=== PATIENT | female | born 1955 | race Caucasian/White ===

== ENCOUNTER 2021-12-28 21:11 | Emergency (ER) | payer MEDICARE ==
[2021-12-28 22:02] LABS: Absolute Neutrophil Ct (ANC) 7.27 (1.4-6.9); Basophil (Absolute #) 0.04 (0-0.4); Eosinophil % 5.1 % (0.00-5.0); Eosinophil (Absolute #) 0.57 (0-0.5); Hematocrit 44.9 % (35-47); Hemoglobin 14.5 gm/dl (12.0-16.0); Lymphocyte (Absolute #) 2.38 (1.0-4.6); Lymphocytes % 21.1 % (24.0-44.0); Mean Cell Volume 89.3 fl (78-100); Mean Corpuscular Hemoglobin 28.8 pg (26-32); Mean Corpuscular Hgb Concent. 32.3 g/dl (32-36); Monocyte (Absolute #) 1.02 (0.0-1.3); Neutrophil % 64.4 % (36.0-66.0); Platelet Count 291 K/mm3 (150-450); Red Blood Count 5.03 M/mm3 (4.1-5.4); Red Cell Distribution Width 14.4 % (11.5-14.0); White Blood Count 11.3 K/mm3 (4.0-10.5)
[2021-12-28 22:06] LABS: Epithelial Cells RARE /HPF (FEW); RBC 0-2 /HPF (0-2); WBC 0-2 /HPF (0-5)
[2021-12-28 22:09] LABS: Appearance CLEAR (CLEAR); Bilirubin NEGATIVE (NEGATIVE); Glucose 500 mg/dL (NEGATIVE); Ketones NEGATIVE (NEGATIVE)
[2021-12-28 22:10] LABS: Dipstick done @ ? MAIN LAB; Nitrite NEGATIVE (NEGATIVE); Ph 6.5 (5-6); Protein,Urine Dip >=300 (Negative); RBC SMALL Ery/ul (0-5); Urine Cultured Indicated? YES; Urobilinogen 0.2 mg/dL (0-1)
[2021-12-28 22:11] LABS: INR 0.96 (0.8-3.0); PROTIME 11.3 SECONDS (9.4-12.5)
[2021-12-28 22:14] LABS: PTT 29.6 SECONDS (25.1-36.5)
[2021-12-28 22:17] LABS: ALBUMIN 3.3 g/dL (3.5-5.0); ANION GAP 11.8 MEQ/L (5-15); BILIRUBIN,TOTAL 0.5 mg/dL (0.2-1.3); Calcium 8.7 mg/dL (8.4-10.2); Creatinine 1 1.4 mg/dL (0.52-1.04); EST GLOMERULAR FILTRATION RATE 40.1 ML/MIN; Potassium 3.4 mmol/L (3.5-5.1); Total Protein 6.6 g/dL (6.3-8.2)
--- NOTE | 2021-12-28 22:24 | ERPHSYRPT ---
- History of Present Illness Source: patient Exam Limitations: other (Poor historian) Patient Subjective Stated Complaint: Patient states she fell on Sunday from her chair/recliner and hit a bucket that was next to the chair. Indicates that she hit the bucket with her right lower abdomen and that the pain to this area has not improved and she thinks she should have it checked. She is unsure how or why she fell. Patient indicates that she has become weaker over the past few weeks and her has had to help her more with her mobility than normal. Patient reports a stroke approx 8 years ago that affected her left side but feels that her left side may be weaker over the past few weeks than her normal. Triage Nursing Assessment: Patient brought back to ED in a wheelchair. She required one staff member to assist with a transfer from the wheelchair to the bed and two staff members to assist her from the wheelchair to the toilet. BLE with noted weakness during transfers but patient was able to bear weight and pivot slowly. LLE may be slightly weaker than the RLE. Mild droop noted to left corner of her mouth. She is alert and oriented and answering questions appropriately; very talkative. Patient is not the best historian but her is at the bedside assisting with her history. Right lower abdomen is bruised with no other skin alterations noted. Physician History: 66 yo wf w fall at her home 3 days ago hitting her R abdomen on a bucket. Pt has a chronic L hemiparesis due to old CVA but has been having generalized weakness over the last 2-3 weeks. Pt did not hit her head but is worried about progressive generalized weakness. She has mild C-spine pain but denies T/L-spine pain. Pt has a large ecchymotic area R abdomen. Thorax/back/upper-lower extremities NTTP. Occurred: days ago (3 days ago) Reason for Fall: lost balance Injuries/Pain Location: neck, abdomen Loss of Consciousness: no loss of consciousness Severity of Pain-Max: severe Severity of Pain-Current: severe Modifying Factors: Improves With: movement Associated Symptoms (Fall): abdominal pain, neck pain Allergies/Adverse Reactions: No Known Drug Allergies Allergy (Verified 12/28/21 21:29) Home Medications: Cholecalciferol (Vitamin D3) [Vitamin D3] 1 tab PO DAILY 12/28/21 [History] Docusate Sodium [Colace] 1 cap PO TID PRN 12/28/21 [History] Gabapentin [Neurontin] 1 tab PO TID 12/28/21 [History] Insulin Glargine [Lantus Insulin] 50 units SQ HS 12/28/21 [History] Insulin Lispro [Insulin Lispro Kwikpen U-100] 20 units SQ BID 12/28/21 [History] Lisinopril/Hydrochlorothiazide [Zestoretic 20-12.5 mg Tablet] 1 tab PO DAILY 12/28/21 [History] Omeprazole 1 cap PO DAILY PRN 12/28/21 [History] Polyethylene Glycol 3350 [Miralax] 17 gm PO DAILY PRN 12/28/21 [History] Vitamin B Complex 1 tab PO DAILY 12/28/21 [History] Hx Tetanus, Diphtheria Vaccination/Date Given: Yes Hx Influenza Vaccination/Date Given: No Hx Pneumococcal Vaccination/Date Given: Yes Immunizations Up to Date: Yes Travel Risk - International Travel Have you traveled outside of the country in past 3 weeks: No - Coronavirus Screening Are you exhibiting any of the following symptoms?: No Close contact with a COVID-19 positive Pt in past 14-21 Days: No - Vaccine Status Have you recieved a Covid-19 vaccination: No - Review of Systems Constitutional: No Symptoms, Lethargy Eyes: No Symptoms Ears, Nose, & Throat: No Symptoms Respiratory: No Symptoms Cardiac: No Symptoms Abdominal/Gastrointestinal: No Symptoms, Abdominal Pain Genitourinary Symptoms: No Symptoms Musculoskeletal: No Symptoms Skin: No Symptoms Neurological: No Symptoms Psychological: No Symptoms Endocrine: No Symptoms Hematologic/Lymphatic: No Symptoms Immunological/Allergic: No Symptoms - Past Medical History Pertinent Past Medical History: Yes Neurological History: Stroke ENT History: Cataracts Cardiac History: High Cholesterol, Hypertension Respiratory History: No Pertinent History Endocrine Medical History: Diabetes Type II, Hypothyroidism Musculoskeletal History: Arthritis, Fractures GI Medical History: GERD, Gallbladder Disease History: No Pertinent History Psycho-Social History: No Pertinent History Female Reproductive Disorders: No Pertinent History - Past Surgical History Past Surgical History: Yes Neuro Surgical History: No Pertinent History Cardiac: No Pertinent History Respiratory: No Pertinent History Gastrointestinal: No Pertinent History Genitourinary: No Pertinent History Musculoskeletal: Orthopedic Surgery Female Surgical History: Hysterectomy, Section Other Surgical History: Knee, wrist - Social History Smoking Status: Current every day smoker How long have you smoked: 20 years Exposure to second hand smoke: No Drug Use: none Patient Lives Alone: No Significant Family History: no pertinent family hx - Nursing Vital Signs Nursing Vital Signs: Initial Vital Signs Temperature 98 F 12/28/21 21:30 Pulse Rate 97 H 12/28/21 21:30 Respiratory Rate 18 12/28/21 21:30 Blood Pressure 173/91 12/28/21 21:30 O2 Sat by Pulse Oximetry 96 12/28/21 21:30 Pain Scale Pain Intensity 0 Hypertensive - Neema Coma Score Best Eye Response (Neema): (4) open spontaneously Best Verbal Response (Neema): (5) oriented Best Motor Response (Neema): (6) obeys commands [place] Total: 15 - Physical Exam General Appearance: no apparent distress Head Injury: no evidence of injury Eye Exam: PERRL/EOMI, eyes nml inspection ENT Exam: airway nml, No evidence of ENT injury, No dental injury, No clear fluid (ears), No clear fluid (nose) Neck Exam: supple, trachea midline, tenderness (C-spine mildly TTP), No focal neuro deficit Respiratory/Chest Exam: normal breath sounds, No chest tenderness, No respiratory distress Cardiovascular Exam: normal heart sounds, regular rate/rhythm, No murmur Gastrointestinal Exam: soft, tenderness (R sided abdominal TTP w large ecchymotic area) Back Exam: normal inspection, normal range of motion, No CVA tenderness, No vertebral tenderness Extremity Exam: normal inspection, normal range of motion, capillary refill <3 sec, pelvis stable, No deformities, No lacerations Peripheral Pulses: carotid (R): 2+, carotid (L): 2+ Neurologic Exam: alert, oriented x 3, cooperative, 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 nml as tested, motor deficits (Pt states that she has chronic L hemiparesis but strength appears symmetric) Skin Exam: normal color SpO2 Interpretation: normal SpO2: 94 O2 Delivery: Room Air - Course Nursing assessment & vital signs reviewed: Yes EKG Interpreted by Me: RATE (NSR/R92/Mildly prolonged QTc/IVCD/Poor Rwave progression/No acute ST segment changes) - CT Exams Head CT Interpretation: Tele-radiologist Report (CT head Nothing acute/L frontal cortex encephalomalacia) Cervical Spine CT Interpretation: Tele-radiologist Report (DDD) Abdomen/Pelvis CT Interpretation: Tele-radiologist Report (Gallbladder sludge, nothing acute) Ordered Tests: Active Orders 24 hr Category Date Time Status AMA [Release AMA] OM.NOW Care 12/29/21 00:51 Completed EKG-ER Only STAT Care 12/28/21 21:53 Completed ABDOMEN AND PELVIS W/0 CONTRAS [CT] Stat Exams 12/28/21 22:06 Taken CERVICAL SPINE WO CONTRAST [CT] Stat Exams 12/28/21 21:52 Taken HEAD WITHOUT CONTRAST [CT] Stat Exams 12/28/21 21:52 Taken CBC W DIFF Stat Lab 12/28/21 21:52 Completed CMP Stat Lab 12/28/21 21:50 Completed PROTIME WITH INR Stat Lab 12/28/21 21:50 Completed PTT Stat Lab 12/28/21 21:50 Completed TROPONIN Q3H Lab 12/28/21 21:50 Completed TROPONIN Q3H Lab 12/29/21 00:15 Completed TROPONIN Q3H Lab 12/29/21 04:00 Ordered TROPONIN Q3H Lab 12/29/21 07:00 Ordered TROPONIN Q3H Lab 12/29/21 10:00 Ordered Medication Summary Discontinued Medications Generic Name Dose Route Start Last Admin Trade Name Freq PRN Reason Stop Dose Admin Fentanyl Citrate 25 mcg 12/28/21 23:27 12/28/21 23:38 Fentanyl Citrate 100 Mcg/2 Ml* Vial IV 12/28/21 23:28 25 mcg STAT ONE Administration Fentanyl Citrate Confirm 12/28/21 23:32 Fentanyl Citrate 100 Mcg/2 Ml* Vial Administered 12/28/21 23:33 Dose 100 mcg .ROUTE .STK-MED ONE Ondansetron HCl 4 mg 12/28/21 23:27 12/28/21 23:37 Ondansetron Hcl 4 Mg/2 Ml Vial IV 12/28/21 23:28 4 mg STAT ONE Administration Ondansetron HCl Confirm 12/28/21 23:31 Ondansetron Hcl 4 Mg/2 Ml Vial Administered 12/28/21 23:32 Dose 4 mg .ROUTE .STK-MED ONE Lab/Rad Data: Laboratory Result Diagrams 12/28/21 21:52 12/28/21 21:50 Laboratory Results 12/29/21 12/28/21 12/28/21 Range/Units 00:15 Unknown 22:30 WBC (4.0-10.5) K/mm3 RBC (4.1-5.4) M/mm3 Hgb (12.0-16.0) gm/dl Hct (35-47) % MCV (78-100) fl MCH (26-32) pg MCHC (32-36) g/dl RDW (11.5-14.0) % Plt Count (150-450) K/mm3 MPV (7.5-11.0) fl Gran % (36.0-66.0) % Eos # (Auto) (0-0.5) Absolute Lymphs (auto) (1.0-4.6) Absolute Monos (auto) (0.0-1.3) Lymphocytes % (24.0-44.0) % Monocytes % (0.0-12.0) % Eosinophils % (0.00-5.0) % Basophils % (0.0-0.4) % Absolute Granulocytes (1.4-6.9) Basophils # (0-0.4) PT (9.4-12.5) SECONDS INR (0.8-3.0) APTT (25.1-36.5) SECONDS Sodium (137-145) mmol/L Potassium (3.5-5.1) mmol/L Chloride (98-107) mmol/L Carbon Dioxide (22-30) mmol/L Anion Gap (5-15) MEQ/L BUN (7-17) mg/dL Creatinine (0.52-1.04) mg/dL Estimated GFR ML/MIN Glucose (74-106) mg/dL Calcium (8.4-10.2) mg/dL Total Bilirubin (0.2-1.3) mg/dL AST (14-36) U/L ALT (0-35) U/L Alkaline Phosphatase (38-126) U/L Troponin I 0.062 H* (0.000-0.034) ng/mL Serum Total Protein (6.3-8.2) g/dL Albumin (3.5-5.0) g/dL Urinalys Dipstick Clnc MAIN LAB Urine Color YELLOW (YELLOW) Urine Appearance CLEAR (CLEAR) Urine pH 6.5 (5-6) Ur Specific [place] 1.020 (1.005-1.025) POC Urine Protein Conf >=300 (Negative) Urine Ketones NEGATIVE (NEGATIVE) Urine Nitrite NEGATIVE (NEGATIVE) Urine Bilirubin NEGATIVE (NEGATIVE) Urine Urobilinogen 0.2 (0-1) mg/dL Urine Leukocytes NEGATIVE (NEGATIVE) Urine WBC (Auto) 0-2 (0-5) /HPF Urine RBC (Auto) 0-2 (0-2) /HPF U Epithel Cells (Auto) RARE (FEW) /HPF Urine RBC SMALL (0-5) [place]/ul Ur Culture Indicated? YES Urine Glucose 500 (NEGATIVE) mg/dL Influenza Type A Ag NEGATIVE (NEGATIVE) Influenza Type B Ag NEGATIVE (NEGATIVE) RSV (PCR) NEGATIVE (Negative) SARS-CoV-2 (PCR) NEGATIVE (NEGATIVE) 12/28/21 12/28/21 12/28/21 Range/Units 21:52 21:50 21:50 WBC 11.3 H (4.0-10.5) K/mm3 RBC 5.03 (4.1-5.4) M/mm3 Hgb 14.5 (12.0-16.0) gm/dl Hct 44.9 (35-47) % MCV 89.3 (78-100) fl MCH 28.8 (26-32) pg MCHC 32.3 (32-36) g/dl RDW 14.4 H (11.5-14.0) % Plt Count 291 (150-450) K/mm3 MPV 10.0 (7.5-11.0) fl Gran % 64.4 (36.0-66.0) % Eos # (Auto) 0.57 H (0-0.5) Absolute Lymphs (auto) 2.38 (1.0-4.6) Absolute Monos (auto) 1.02 (0.0-1.3) Lymphocytes % 21.1 L (24.0-44.0) % Monocytes % 9.0 (0.0-12.0) % Eosinophils % 5.1 H (0.00-5.0) % Basophils % 0.4 (0.0-0.4) % Absolute Granulocytes 7.27 H (1.4-6.9) Basophils # 0.04 (0-0.4) PT 11.3 (9.4-12.5) SECONDS INR 0.96 (0.8-3.0) APTT 29.6 (25.1-36.5) SECONDS Sodium (137-145) mmol/L Potassium (3.5-5.1) mmol/L Chloride (98-107) mmol/L Carbon Dioxide (22-30) mmol/L Anion Gap (5-15) MEQ/L BUN (7-17) mg/dL Creatinine (0.52-1.04) mg/dL Estimated GFR ML/MIN Glucose (74-106) mg/dL Calcium (8.4-10.2) mg/dL Total Bilirubin (0.2-1.3) mg/dL AST (14-36) U/L ALT (0-35) U/L Alkaline Phosphatase (38-126) U/L Troponin I 0.070 H* (0.000-0.034) ng/mL Serum Total Protein (6.3-8.2) g/dL Albumin (3.5-5.0) g/dL Urinalys Dipstick Clnc Urine Color (YELLOW) Urine Appearance (CLEAR) Urine pH (5-6) Ur Specific [place] (1.005-1.025) POC Urine Protein Conf (Negative) Urine Ketones (NEGATIVE) Urine Nitrite (NEGATIVE) Urine Bilirubin (NEGATIVE) Urine Urobilinogen (0-1) mg/dL Urine Leukocytes (NEGATIVE) Urine WBC (Auto) (0-5) /HPF Urine RBC (Auto) (0-2) /HPF U Epithel Cells (Auto) (FEW) /HPF Urine RBC (0-5) [place]/ul Ur Culture Indicated? Urine Glucose (NEGATIVE) mg/dL Influenza Type A Ag (NEGATIVE) Influenza Type B Ag (NEGATIVE) RSV (PCR) (Negative) SARS-CoV-2 (PCR) (NEGATIVE) 12/28/21 Range/Units 21:50 WBC (4.0-10.5) K/mm3 RBC (4.1-5.4) M/mm3 Hgb (12.0-16.0) gm/dl Hct (35-47) % MCV (78-100) fl MCH (26-32) pg MCHC (32-36) g/dl RDW (11.5-14.0) % Plt Count (150-450) K/mm3 MPV (7.5-11.0) fl Gran % (36.0-66.0) % Eos # (Auto) (0-0.5) Absolute Lymphs (auto) (1.0-4.6) Absolute Monos (auto) (0.0-1.3) Lymphocytes % (24.0-44.0) % Monocytes % (0.0-12.0) % Eosinophils % (0.00-5.0) % Basophils % (0.0-0.4) % Absolute Granulocytes (1.4-6.9) Basophils # (0-0.4) PT (9.4-12.5) SECONDS INR (0.8-3.0) APTT (25.1-36.5) SECONDS Sodium 134 L (137-145) mmol/L Potassium 3.4 L (3.5-5.1) mmol/L Chloride 96 L (98-107) mmol/L Carbon Dioxide 29 (22-30) mmol/L Anion Gap 11.8 (5-15) MEQ/L BUN 20 H (7-17) mg/dL Creatinine 1.40 H (0.52-1.04) mg/dL Estimated GFR 40.1 ML/MIN Glucose 281 H (74-106) mg/dL Calcium 8.7 (8.4-10.2) mg/dL Total Bilirubin 0.50 (0.2-1.3) mg/dL AST 22 (14-36) U/L ALT 10 (0-35) U/L Alkaline Phosphatase 117 (38-126) U/L Troponin I (0.000-0.034) ng/mL Serum Total Protein 6.6 (6.3-8.2) g/dL Albumin 3.3 L (3.5-5.0) g/dL Urinalys Dipstick Clnc Urine Color (YELLOW) Urine Appearance (CLEAR) Urine pH (5-6) Ur Specific [place] (1.005-1.025) POC Urine Protein Conf (Negative) Urine Ketones (NEGATIVE) Urine Nitrite (NEGATIVE) Urine Bilirubin (NEGATIVE) Urine Urobilinogen (0-1) mg/dL Urine Leukocytes (NEGATIVE) Urine WBC (Auto) (0-5) /HPF Urine RBC (Auto) (0-2) /HPF U Epithel Cells (Auto) (FEW) /HPF Urine RBC (0-5) [place]/ul Ur Culture Indicated? Urine Glucose (NEGATIVE) mg/dL Influenza Type A Ag (NEGATIVE) Influenza Type B Ag (NEGATIVE) RSV (PCR) (Negative) SARS-CoV-2 (PCR) (NEGATIVE) - Progress Progress Note: 12/29/21 00:46 Fentanyl 25umg IV/4mg IV Zofran Pt w mildly elevated troponin and risk factors of DM/HTN/Tobacco abuse, so recommended Obs admit. Pt refused and signed out AMA. Risks explained to pt, including OR/ Counseled pt/family regarding: lab results, diagnosis, need for follow-up, rad results - Departure Departure Disposition: AMA Clinical Impression: Abdominal wall contusion, Elevated troponin, Renal insufficiency, Hypertension Condition: Stable Critical Care Time: No Referrals: Provider,Unknown [Primary Care Provider] - Follow up/PCP as directed Instructions: Preventing Falls
[2021-12-28 23:18] LABS: INFLUENZA A NEGATIVE (NEGATIVE); INFLUENZA B NEGATIVE (NEGATIVE); RESPIRATORY SYNCTIAL VIRUS NEGATIVE (Negative); SARS-CoV-2 Xpert Express NEGATIVE (NEGATIVE)
[2021-12-28] MEDS ORDERED: SUBLIMAZE 100 MCG/2 ML IV ONE (23:27)
[2021-12-28] MEDS ORDERED: Zofran 4 MG/2 ML VIAL IV ONE (23:27)
[2021-12-28] MEDS ORDERED: Zofran 4 MG/2 ML VIAL ONE (23:31)
[2021-12-28] MEDS ORDERED: SUBLIMAZE 100 MCG/2 ML ONE (23:32)
[2021-12-28 23:39] VITALS: O2SAT 94
[2021-12-29 00:46] VITALS: BP 143/106; PULSE 84
--- NOTE | 2021-12-29 08:45 | XRAY ---
Indication: Status post fall. Left facial numbness and right neck pain. Multiple contiguous axial images obtained through the head without contrast. Comparison: None Age-appropriate global atrophy and mild/moderate periventricular degenerative micro-ischemia bilaterally. Small focus old infarct left parietal lobe anteriorly. No acute intracranial hemorrhage, hydrocephalus, or mass effect. Fourth ventricle is midline. Bony calvarium intact. Visualized paranasal sinuses and mastoid air cells are clear. Impression: Nonacute senile brain with small old left parietal infarct. Comment: Preliminary interpretation made by C. No critical discrepancy.
--- NOTE | 2021-12-29 08:47 | XRAY ---
Indication: Status post fall. Left facial numbness and right neck pain. Multiple contiguous axial images obtained through the cervical spine. Sagittal and coronal reformatted images obtained. Comparison: None Axial images negative for acute fracture, suspicious bony lesions, or spinal canal stenosis. Mild C3-C7 degenerative endplate spurring. Sagittal and coronal reformatted images demonstrates normal alignment. Minimal C4-C5 disc space narrowing. No acute compression fracture, subluxation, or jumped facet. Normal appearing craniocervical junction. Visualized noncontrasted soft tissues demonstrates moderate scattered vascular calcifications bilaterally. Lung apices clear. Impression: 1. Negative for acute fracture/subluxation. 2. Multilevel degenerative changes and scattered arteriosclerotic disease. Comment: Preliminary interpretation made by [facility]. No critical discrepancy.
--- NOTE | 2021-12-29 08:49 | XRAY ---
Indication: Status post fall. Right abdomen pain. Multiple contiguous axial images obtained through the abdomen and pelvis without contrast. Comparison: None Lung bases demonstrates minimal fibrosis/scarring. No infiltrate, effusion, or pneumothorax. Heart enlarged. Noncontrasted stomach and bowel loops nonobstructed with normal appendix. Mild diffuse scattered colonic fecal debris throughout. Previous hysterectomy. No free fluid/air. Gallbladder normally distended with faint sludge/gravel in the dependent portion. 9 mm right lobe hepatic cyst. Remaining liver, gallbladder, pancreas, spleen, adrenal glands, kidneys, ureters, and bladder are unremarkable for noncontrast exam. Moderate/severe and diffuse scattered vascular calcifications without AAA. Osseous structures intact with mild degenerative changes throughout the thoracolumbar spine. Impression: 1. Gallbladder sludge/gravel better evaluated with sonogram if clinically warranted. 2. Diffuse fecal stasis. 3. Incidental cardiomegaly, small hepatic cyst, arteriosclerotic disease, and chronic bony findings. 4. Remaining CT abdomen/pelvis without contrast exam is negative. Comment: Preliminary interpretation made by [facility]. No critical discrepancy.
== END 2021-12-29 01:00 | disposition left against medical advice (07) ==
LOC: ED 21:11
DX: S30.1XXA Contusion of abdominal wall, initial encounter (principal); W07.XXXA Fall from chair, initial encounter; R77.8 Other specified abnormalities of plasma proteins; N28.9 Disorder of kidney and ureter, unspecified; I10 Essential (primary) hypertension; R53.1 Weakness; I69.354 Hemiplegia and hemiparesis following cerebral infarction affecting left non-dominant side; M54.2 Cervicalgia; E78.5 Hyperlipidemia, unspecified; E11.9 Type 2 diabetes mellitus without complications; Z72.0 Tobacco use; Z79.4 Long term (current) use of insulin; Z79.899 Other long term (current) drug therapy
CPT/HCPCS: 0241U; 36415; 70450; 72125; 74176; 80053; 81015; 84484; 85025; 85610; 85730; 87086; 93005; 96374; 99284; J2405; J3010

== ENCOUNTER 2022-04-15 19:55 | Emergency (ER) | payer MEDICARE ==
[2022-04-15] MEDS ORDERED: D50W 50 ml Abboject IV ONE (19:59)
[2022-04-15] MEDS ORDERED: DEXTROSE 10% 250 ML 250 ML IV ONE ×2 (20:01→23:21)
[2022-04-15] MEDS ORDERED: Sodium Chloride 0.9% 1000 ML 1,000 ML IV STA (20:06)
[2022-04-15] MEDS ORDERED: Zofran 4 MG/2 ML VIAL IV ONE (20:06)
[2022-04-15 20:25] LABS: Absolute Neutrophil Ct (ANC) 6.59 x10^3/uL (1.4-6.9); Basophil (Absolute #) 0.03 x10^3/uL (0-0.4); Eosinophil % 2.4 % (0.00-5.0); Eosinophil (Absolute #) 0.22 x10^3/uL (0-0.5); Hematocrit 35.9 % (35-47); Hemoglobin 11.4 g/dL (12.0-16.0); Lymphocyte (Absolute #) 1.43 x10^3/uL (1.0-4.6); Lymphocytes % 15.5 % (24.0-44.0); Mean Cell Volume 89.5 fL (78-100); Mean Corpuscular Hemoglobin 28.4 pg (26-32); Mean Corpuscular Hgb Concent. 31.8 g/dL (32-36); Mean Platelet Volume 9.1 fL (7.5-11.0); Monocyte (Absolute #) 0.92 x10^3/uL (0.0-1.3); Neutrophil % 71.4 % (36.0-66.0); Platelet Count 396 x10^3/uL (150-450); Red Blood Count 4.01 x10^6/uL (4.1-5.4); Red Cell Distribution Width 13.3 % (11.5-14.0); White Blood Count 9.2 x10^3/uL (4.0-10.5)
[2022-04-15 20:42] LABS: ALBUMIN 2.3 g/dL (3.5-5.0); ANION GAP 8.9 MEQ/L (5-15); BILIRUBIN,TOTAL 0.2 mg/dL (0.2-1.3); Calcium 8.2 mg/dL (8.4-10.2); Creatinine 1 1.29 mg/dL (0.52-1.04); EST GLOMERULAR FILTRATION RATE 43.9 ML/MIN; MAGNESIUM 1.9 mg/dL (1.6-2.3); Total Protein 4.8 g/dL (6.3-8.2)
[2022-04-15 20:49] LABS: Potassium 2.8 mmol/L (3.5-5.1)
[2022-04-15 20:53] LABS: PROCALCITONIN 0.079 ng/mL (0.030-0.080)
[2022-04-15 20:55] LABS: Epithelial Cells RARE /HPF (FEW); Mucus SLIGHT /HPF (NEGATIVE); RBC 0-2 /HPF (0-2)
[2022-04-15 20:56] LABS: Appearance SLIGHTLY CLOUDY (CLEAR); Bilirubin SMALL (NEGATIVE); Dipstick done @ ? MAIN LAB; Glucose 250 mg/dL (NEGATIVE); Ketones NEGATIVE (NEGATIVE); Nitrite NEGATIVE (NEGATIVE); Ph 5.5 (5-6); Protein,Urine Dip >=300 (Negative); RBC TRACE-INTACT Ery/ul (0-5); Specific Gravity >=1.030 (1.005-1.025); Urobilinogen 0.2 mg/dL (0-1)
[2022-04-15 20:57] LABS: Bacteria NONE SEEN /HPF (NEGATIVE); Urine Cultured Indicated? NO
[2022-04-15] MEDS ORDERED: Zofran 4 MG/2 ML VIAL ONE (21:01)
[2022-04-15] MEDS ORDERED: Sodium Chloride 0.9% 1000 ML 1,000 ML ONE (21:01)
[2022-04-15] MEDS ORDERED: PIPERACILLIN/TAZOBACTAM 3.375 GM in Sodium Chloride 100ML MINI-BAG PLUS 100 ML IV ONE (21:03)
[2022-04-15] MEDS ORDERED: Levofloxacin 500MG/100ML D5W 500 MG/100 ML BAG IV STA (21:03)
[2022-04-15 21:07] LABS: Amphetamine,Urine NEGATIVE (NEGATIVE); Barbiturate,Urine NEGATIVE (NEGATIVE); Benzodiazepine,Urine NEGATIVE (NEGATIVE); Cocaine,Urine NEGATIVE (NEGATIVE); Methadone,Urine NEGATIVE (NEGATIVE); Opiate,Urine NEGATIVE (NEGATIVE); PCP,Urine NEGATIVE (NEGATIVE); THC,Urine NEGATIVE (NEGATIVE)
[2022-04-15 21:08] LABS: TROPONIN 0.061 ng/mL (0.000-0.034)
[2022-04-15] MEDS ORDERED: PIPERACILLIN/TAZOBACTAM IV ONE (21:13)
[2022-04-15] MEDS ORDERED: POTASSIUM CHLORIDE 20 mEq IN WATER 100ML 100 ML IV ONE ×2 (21:14→23:26)
[2022-04-15] MEDS ORDERED: Sodium Chloride 100ML MINI-BAG PLUS 100 ML IV ONE (21:14)
[2022-04-15] MEDS: POTASSIUM CHLORIDE 20 mEq IN WATER 100ML 20 MEQ/100 ML BAG IV SCH ×2 (21:15→23:27)
--- NOTE | 2022-04-15 21:55 | XRAY ---
Indication: Altered mental status. Hypoglycemia. Comparison: None Portable chest inflated and clear. Heart is enlarged. Bony thorax intact with mild osteopenia and degenerative changes. Impression: Cardiomegaly. Negative for acute pneumonic process or CHF.
--- NOTE | 2022-04-15 21:57 | XRAY ---
Indication: Altered mental status. Hypoglycemia. Multiple contiguous axial images obtained through the head without contrast. Comparison: December 28, 2021 Again age-appropriate global atrophy, mild/moderate periventricular degenerative micro-ischemia bilaterally, remote lacunar infarct left basal ganglia, and small old infarct left parietal lobe. No acute intracranial hemorrhage, hydrocephalus, or mass effect. Fourth ventricle is midline. Bony calvarium intact. Visualized paranasal sinuses and mastoid air cells are clear. Impression: Continued nonacute senile brain with incidental remote lacunar infarct left basal ganglia and old infarct left parietal lobe. Comment: Preliminary interpretation made by C. No critical discrepancy.
[2022-04-15] MEDS ORDERED: Levofloxacin 500MG/100ML D5W 500 MG/100 ML BAG IV ONE (22:02)
--- NOTE | 2022-04-15 22:03 | ERPHSYRPT ---
- History of Present Illness Source: EMS Exam Limitations: clinical condition Patient Subjective Stated Complaint: EMS states "We got called for unresponsiveness. Initially fsbs 23 and gave her 3/4 d50." Triage Nursing Assessment: pt presents to ED by ems, pt able to tell me first name only, pt responsive to name and painful stimuli, pt's fsbs upon arrival 58, full amp of d50 and d10 running at 75 ml/hr, pt was released from a hospital per on Hx Tetanus, Diphtheria Vaccination/Date Given: Yes Hx Influenza Vaccination/Date Given: No Hx Pneumococcal Vaccination/Date Given: Yes - History of Present Illness Time Seen by Provider: 04/15/22 20:05 Physician History: 67 years old female with history of insulin-dependent diabetes mellitus, hypertension, hyperlipidemia with recent COVID-19 related admission got nick mckoy 1 or 2 days ago is brought in the ER by EMS with altered mental status. On EMS arrival patient was minimally responsive, diaphoretic and her blood sugar was 23. She received D50 and it improved to 150s. On presentation in the ER fingerstick is 58, given another D50 and started on D10 infusion. Patient is responding to verbal stimuli and falls back asleep. She denies having chest pain/abdominal pain. Moving all 4 extremities to painful stimuli. Patient is able to maintain her vitals with heart rate in upper 50s, sats around 95%. Patient is unable to tell how much insulin she has taken. History is limited and obtained from EMS as no family members available. (FOREIGN MICHAUD) Allergies/Adverse Reactions: No Known Drug Allergies Allergy (Verified 12/28/21 21:29) Home Medications: Docusate Sodium [Colace] 1 cap PO TID PRN PRN 12/28/21 [History] Gabapentin [Neurontin] 600 mg PO TID 12/28/21 [History] Insulin Lispro [Insulin Lispro Kwikpen U-100] 20 units SQ UD 12/28/21 [History] Lisinopril/Hydrochlorothiazide [Zestoretic 20-12.5 mg Tablet] 1 tab PO DAILY 12/28/21 [History] Bisacodyl 5 mg [Dulcolax 5 mg] 5 mg PO DAILY 04/15/22 [History] Carvedilol [Coreg ] 6.25 mg PO BID 04/15/22 [History] Carvedilol 3.125 mg [Coreg 3.125 MG] 3.125 mg PO BID 04/15/22 [History] Cholecalciferol (Vitamin D3) [Vitamin D3] 1,250 mcg PO UD 04/15/22 [History] Insulin Glargine,Hum.rec.anlog [Basaglar Kwikpen U-100] 1 unit SQ UD 04/15/22 [History] Linaclotide [Linzess] 145 mcg PO DAILY 04/15/22 [History] Simvastatin 10 mg [Zocor 10MG] 10 mg PO DAILY 04/15/22 [History] Travel Risk - International Travel Have you traveled outside of the country in past 3 weeks: No - Coronavirus Screening Are you exhibiting any of the following symptoms?: No Close contact with a COVID-19 positive Pt in past 14-21 Days: No - Vaccine Status Have you recieved a Covid-19 vaccination: No - Review of Systems All Other Systems: Unable due to condition - Past Medical History Pertinent Past Medical History: Yes Neurological History: Peripheral Neuropathy, Stroke ENT History: Cataracts Cardiac History: Angina, High Cholesterol, Hypertension Respiratory History: No Pertinent History Endocrine Medical History: Diabetes Type II, Hypothyroidism, Liver Disease, Other Musculoskeletal History: Arthritis, Fractures GI Medical History: GERD, Gallbladder Disease History: No Pertinent History Psycho-Social History: No Pertinent History Female Reproductive Disorders: No Pertinent History Other Medical History: ongoing gall bladder testing - Past Surgical History Past Surgical History: Yes Neuro Surgical History: No Pertinent History Cardiac: No Pertinent History Respiratory: No Pertinent History Gastrointestinal: No Pertinent History Genitourinary: No Pertinent History Musculoskeletal: Orthopedic Surgery Female Surgical History: Hysterectomy, Section Other Surgical History: Knee, wrist - Social History Smoking Status: Current every day smoker How long have you smoked: 20 years Exposure to second hand smoke: No Drug Use: none Patient Lives Alone: No Significant Family History: no pertinent family hx - Physical Exam General Appearance: no apparent distress, lethargy Eye Exam: PERRL/EOMI, eyes nml inspection, No scleral icterus Ears, Nose, Throat Exam: TMs normal, dry mucous membranes Neck Exam: normal inspection, non-tender, supple, No meningismus, No midline tenderness Respiratory Exam: diminished breath sounds, rhonchi, No respiratory distress Cardiovascular Exam: normal heart sounds, bradycardia Gastrointestinal/Abdomen Exam: soft, normal bowel sounds, No tenderness Back Exam: normal inspection Extremity Exam: normal inspection, pelvis stable Neurologic Exam: other (Arousable to verbal commands, follows some instructions, moving all 4 extremities, gross neuro intact, full neuro exam cannot be done.) Skin Exam: normal color, other (Cold clammy) SpO2 Interpretation: normal SpO2: 96 O2 Delivery: Room Air - Nursing Vital Signs Nursing Vital Signs: Initial Vital Signs Temperature 87.9 F 04/15/22 20:24 Pulse Rate 59 L 04/15/22 20:24 Respiratory Rate 13 04/15/22 20:24 Blood Pressure 147/65 04/15/22 20:24 O2 Sat by Pulse Oximetry 98 04/15/22 20:24 Pain Scale Pain Intensity 4 - Course EKG Interpreted by Me: RATE (55), Q-wave (Anteroseptal Q waves, ST depression in lateral lead, T wave inversion in anterolateral leads) Ordered Tests: Active Orders 24 hr Category Date Time Status EKG-ER Only STAT Care 04/15/22 20:06 Completed Andres [Catheter-[place] Andres] STAT Care 04/15/22 20:38 Completed IV Insertion STAT Care 04/15/22 20:06 Completed NPO (ED) STAT Care 04/15/22 20:06 Completed Telemetry q4h Care 04/15/22 21:06 Completed CHEST 1 VIEW (PORTABLE) Stat Exams 04/15/22 20:07 Completed HEAD WITHOUT CONTRAST [CT] Stat Exams 04/15/22 20:07 Completed CBC W DIFF Stat Lab 04/15/22 20:23 Completed CMP Stat Lab 04/15/22 20:23 Completed Lactic Acid Stat Lab 04/15/22 20:06 Completed MAGNESIUM Stat Lab 04/15/22 20:23 Completed NT PRO BNP Routine Lab 04/15/22 20:23 Completed POCT GLUCOSE Stat Lab 04/15/22 20:26 Completed POCT GLUCOSE Stat Lab 04/15/22 21:32 Completed POCT GLUCOSE Stat Lab 04/15/22 21:55 Completed POCT GLUCOSE Stat Lab 04/15/22 22:35 Completed POCT GLUCOSE Stat Lab 04/15/22 23:29 Completed POCT GLUCOSE Stat Lab 04/16/22 00:35 Completed POCT GLUCOSE Stat Lab 04/16/22 02:03 Completed POCT GLUCOSE Stat Lab 04/16/22 03:07 Completed POCT GLUCOSE Stat Lab 04/16/22 05:12 Completed POCT GLUCOSE Stat Lab 04/16/22 07:47 Completed PROCALCITONIN Routine Lab 04/15/22 20:23 Completed Potassium Routine Lab 04/16/22 04:22 Completed TROPONIN Q4H Lab 04/15/22 20:23 Completed TROPONIN Q4H Lab 04/16/22 00:21 Completed TROPONIN Q4H Lab 04/16/22 04:17 Completed UA W/RFX CULTURE Stat Lab 04/15/22 20:46 Completed Urine Triage Profile Stat Lab 04/15/22 20:46 Completed Medication Summary Discontinued Medications Generic Name Dose Route Start Last Admin Trade Name Freq PRN Reason Stop Dose Admin Acetaminophen 975 mg 04/16/22 03:53 04/16/22 03:56 Acetaminophen 325 Mg Tablet PO 04/16/22 03:54 975 mg STAT STA Administration Acetaminophen Confirm 04/16/22 03:54 Acetaminophen 325 Mg Tablet Administered 04/16/22 03:55 Dose 975 mg .ROUTE .STK-MED ONE Dextrose Confirm 04/15/22 19:59 Dextrose 50%-Water 50 Ml Abboject Administered 04/15/22 20:00 Dose 50 ml IV .STK-MED ONE Dextrose Confirm 04/15/22 20:01 Dextrose 10% 250 Ml Administered 04/15/22 20:02 Dose 250 mls @ ud IV .STK-MED ONE Sodium Chloride 1,000 mls @ 999 mls/hr 04/15/22 20:06 04/16/22 06:46 Sodium Chloride 0.9% 1000 Ml IV 04/15/22 21:06 Infused .Q1H1M STA Infusion Sodium Chloride Confirm 04/15/22 21:01 Sodium Chloride 0.9% 1000 Ml Administered 04/15/22 21:02 Dose 1,000 mls @ ud .ROUTE .STK-MED ONE Piperacillin Sod/Tazobactam 100 mls @ 200 mls/hr 04/15/22 21:03 04/15/22 21:16 Sod 3.375 gm/ Sodium Chloride IV 04/15/22 21:32 200 mls/hr STAT ONE Administration Levofloxacin/Dextrose 500 mg in 100 mls @ 100 mls/hr 04/15/22 21:03 04/16/22 01:56 Levofloxacin 500mg/100ml D5w IV 04/15/22 22:02 Infused STAT STA Infusion Potassium Chloride 20 meq in 100 mls @ 50 mls/hr 04/15/22 21:15 04/15/22 23:27 Potassium Chloride 20 Meq In Water 100ml IV 04/16/22 01:14 50 mls/hr Q2H SHANNEN Administration Sodium Chloride Confirm 04/15/22 21:14 Sodium Chloride 100ml Mini-Bag Plus Administered 04/15/22 21:15 Dose 100 mls @ ud IV .STK-MED ONE Levofloxacin/Dextrose Confirm 04/15/22 22:02 Levofloxacin 500mg/100ml D5w Administered 04/15/22 22:03 Dose 500 mg in 100 mls @ ud IV .STK-MED ONE Dextrose Confirm 04/15/22 23:21 Dextrose 10% 250 Ml Administered 04/15/22 23:22 Dose 250 mls @ ud IV .STK-MED ONE Dextrose 250 mls @ 100 mls/hr 04/15/22 23:45 04/16/22 06:45 Dextrose 10% 250 Ml IV 05/15/22 23:44 Infused .Q2H30M SHANNEN Infusion Sodium Chloride Confirm 04/16/22 07:04 Sodium Chloride 0.9% 1000 Ml Administered 04/16/22 07:05 Dose 1,000 mls @ ud .ROUTE .STK-MED ONE Potassium Chloride Confirm 04/15/22 21:14 Potassium Chloride 20 Meq In Water 100ml Administered 04/15/22 21:15 Dose 100 mls @ ud IV .STK-MED ONE Potassium Chloride Confirm 04/15/22 23:26 Potassium Chloride 20 Meq In Water 100ml Administered 04/15/22 23:27 Dose 100 mls @ ud IV .STK-MED ONE Ondansetron HCl 4 mg 04/15/22 20:06 04/15/22 21:02 Ondansetron Hcl 4 Mg/2 Ml Vial IV 04/15/22 20:07 4 mg STAT ONE Administration Ondansetron HCl Confirm 04/15/22 21:01 Ondansetron Hcl 4 Mg/2 Ml Vial Administered 04/15/22 21:02 Dose 4 mg .ROUTE .STK-MED ONE Piperacillin Sod/Tazobactam Sod Confirm 04/15/22 21:13 Piperacillin/Tazobactam Sodium 3.375 Gm Vial Administered 04/15/22 21:14 Dose 3.375 gm IV .[facility] ONE Lab/Rad Data: Laboratory Result Diagrams 04/15/22 20:23 04/16/22 04:22 Laboratory Results 04/16/22 04/16/22 04/16/22 Range/Units 07:47 05:12 04:22 WBC (4.0-10.5) x10^3/uL RBC (4.1-5.4) x10^6/uL Hgb (12.0-16.0) g/dL Hct (35-47) % MCV (78-100) fL MCH (26-32) pg MCHC (32-36) g/dL RDW (11.5-14.0) % Plt Count (150-450) x10^3/uL MPV (7.5-11.0) fL Gran % (36.0-66.0) % Immature Gran % (Auto) (0.00-0.4) % Nucleat RBC Rel Count (0.00-0.1) % Eos # (Auto) (0-0.5) x10^3/uL Immature Gran # (Auto) (0.00-0.03) x10^3u/L Absolute Lymphs (auto) (1.0-4.6) x10^3/uL Absolute Monos (auto) (0.0-1.3) x10^3/uL Absolute Nucleated RBC (0.00-0.01) x10^3u/L Lymphocytes % (24.0-44.0) % Monocytes % (0.0-12.0) % Eosinophils % (0.00-5.0) % Basophils % (0.0-0.4) % Absolute Granulocytes (1.4-6.9) x10^3/uL Basophils # (0-0.4) x10^3/uL Sodium (137-145) mmol/L Potassium 4.3 D (3.5-5.1) mmol/L Chloride (98-107) mmol/L Carbon Dioxide (22-30) mmol/L Anion Gap (5-15) MEQ/L BUN (7-17) mg/dL Creatinine (0.52-1.04) mg/dL Estimated GFR ML/MIN Glucose (74-106) mg/dL POC Glucometer 104 111 H (74 to 106) mg/dL Lactic Acid (0.4-2.0) Calcium (8.4-10.2) mg/dL Magnesium (1.6-2.3) mg/dL Total Bilirubin (0.2-1.3) mg/dL AST (14-36) U/L ALT (0-35) U/L Alkaline Phosphatase (38-126) U/L Troponin I (0.000-0.034) ng/mL NT-Pro-B Natriuret Pep (0-900) pg/mL Serum Total Protein (6.3-8.2) g/dL Albumin (3.5-5.0) g/dL Procalcitonin (0.030-0.080) ng/mL Urinalys Dipstick Clnc Urine Color (YELLOW) Urine Appearance (CLEAR) Urine pH (5-6) Ur Specific Browder (1.005-1.025) POC Urine Protein Conf (Negative) Urine Ketones (NEGATIVE) Urine Nitrite (NEGATIVE) Urine Bilirubin (NEGATIVE) Urine Urobilinogen (0-1) mg/dL Urine Leukocytes (NEGATIVE) Urine WBC (Auto) (0-5) /HPF Urine RBC (Auto) (0-2) /HPF U Hyaline Cast (Auto) (0-2) /LPF U Epithel Cells (Auto) (FEW) /HPF Urine Bacteria (Auto) (NEGATIVE) /HPF Urine RBC (0-5) Francisco/ul Unidentified Crystals (NEGATIVE) /HPF Urine Mucus (Auto) (NEGATIVE) /HPF Ur Culture Indicated? Urine Glucose (NEGATIVE) mg/dL Urine Opiates Level (NEGATIVE) Ur Methadone (NEGATIVE) Urine Barbiturates (NEGATIVE) Ur Phencyclidine (PCP) (NEGATIVE) Urine Amphetamine (NEGATIVE) U Benzodiazepine Level (NEGATIVE) Urine Cocaine (NEGATIVE) Urine Marijuana (THC) (NEGATIVE) Influenza Type A Ag (NEGATIVE) Influenza Type B Ag (NEGATIVE) RSV (PCR) (Negative) SARS-CoV-2 (PCR) (NEGATIVE) 04/16/22 04/16/22 04/16/22 Range/Units 04:17 03:07 02:03 WBC (4.0-10.5) x10^3/uL RBC (4.1-5.4) x10^6/uL Hgb (12.0-16.0) g/dL Hct (35-47) % MCV (78-100) fL MCH (26-32) pg MCHC (32-36) g/dL RDW (11.5-14.0) % Plt Count (150-450) x10^3/uL MPV (7.5-11.0) fL Gran % (36.0-66.0) % Immature Gran % (Auto) (0.00-0.4) % Nucleat RBC Rel Count (0.00-0.1) % Eos # (Auto) (0-0.5) x10^3/uL Immature Gran # (Auto) (0.00-0.03) x10^3u/L Absolute Lymphs (auto) (1.0-4.6) x10^3/uL Absolute Monos (auto) (0.0-1.3) x10^3/uL Absolute Nucleated RBC (0.00-0.01) x10^3u/L Lymphocytes % (24.0-44.0) % Monocytes % (0.0-12.0) % Eosinophils % (0.00-5.0) % Basophils % (0.0-0.4) % Absolute Granulocytes (1.4-6.9) x10^3/uL Basophils # (0-0.4) x10^3/uL Sodium (137-145) mmol/L Potassium (3.5-5.1) mmol/L Chloride (98-107) mmol/L Carbon Dioxide (22-30) mmol/L Anion Gap (5-15) MEQ/L BUN (7-17) mg/dL Creatinine (0.52-1.04) mg/dL Estimated GFR ML/MIN Glucose (74-106) mg/dL POC Glucometer 138 H 165 H (74 to 106) mg/dL Lactic Acid (0.4-2.0) Calcium (8.4-10.2) mg/dL Magnesium (1.6-2.3) mg/dL Total Bilirubin (0.2-1.3) mg/dL AST (14-36) U/L ALT (0-35) U/L Alkaline Phosphatase (38-126) U/L Troponin I 0.048 H* (0.000-0.034) ng/mL NT-Pro-B Natriuret Pep (0-900) pg/mL Serum Total Protein (6.3-8.2) g/dL Albumin (3.5-5.0) g/dL Procalcitonin (0.030-0.080) ng/mL Urinalys Dipstick Clnc Urine Color (YELLOW) Urine Appearance (CLEAR) Urine pH (5-6) Ur Specific Browder (1.005-1.025) POC Urine Protein Conf (Negative) Urine Ketones (NEGATIVE) Urine Nitrite (NEGATIVE) Urine Bilirubin (NEGATIVE) Urine Urobilinogen (0-1) mg/dL Urine Leukocytes (NEGATIVE) Urine WBC (Auto) (0-5) /HPF Urine RBC (Auto) (0-2) /HPF U Hyaline Cast (Auto) (0-2) /LPF U Epithel Cells (Auto) (FEW) /HPF Urine Bacteria (Auto) (NEGATIVE) /HPF Urine RBC (0-5) Francisco/ul Unidentified Crystals (NEGATIVE) /HPF Urine Mucus (Auto) (NEGATIVE) /HPF Ur Culture Indicated? Urine Glucose (NEGATIVE) mg/dL Urine Opiates Level (NEGATIVE) Ur Methadone (NEGATIVE) Urine Barbiturates (NEGATIVE) Ur Phencyclidine (PCP) (NEGATIVE) Urine Amphetamine (NEGATIVE) U Benzodiazepine Level (NEGATIVE) Urine Cocaine (NEGATIVE) Urine Marijuana (THC) (NEGATIVE) Influenza Type A Ag (NEGATIVE) Influenza Type B Ag (NEGATIVE) RSV (PCR) (Negative) SARS-CoV-2 (PCR) (NEGATIVE) 04/16/22 04/16/22 04/15/22 Range/Units 00:35 00:21 23:29 WBC (4.0-10.5) x10^3/uL RBC (4.1-5.4) x10^6/uL Hgb (12.0-16.0) g/dL Hct (35-47) % MCV (78-100) fL MCH (26-32) pg MCHC (32-36) g/dL RDW (11.5-14.0) % Plt Count (150-450) x10^3/uL MPV (7.5-11.0) fL Gran % (36.0-66.0) % Immature Gran % (Auto) (0.00-0.4) % Nucleat RBC Rel Count (0.00-0.1) % Eos # (Auto) (0-0.5) x10^3/uL Immature Gran # (Auto) (0.00-0.03) x10^3u/L Absolute Lymphs (auto) (1.0-4.6) x10^3/uL Absolute Monos (auto) (0.0-1.3) x10^3/uL Absolute Nucleated RBC (0.00-0.01) x10^3u/L Lymphocytes % (24.0-44.0) % Monocytes % (0.0-12.0) % Eosinophils % (0.00-5.0) % Basophils % (0.0-0.4) % Absolute Granulocytes (1.4-6.9) x10^3/uL Basophils # (0-0.4) x10^3/uL Sodium (137-145) mmol/L Potassium (3.5-5.1) mmol/L Chloride (98-107) mmol/L Carbon Dioxide (22-30) mmol/L Anion Gap (5-15) MEQ/L BUN (7-17) mg/dL Creatinine (0.52-1.04) mg/dL Estimated GFR ML/MIN Glucose (74-106) mg/dL POC Glucometer 126 H 116 H (74 to 106) mg/dL Lactic Acid (0.4-2.0) Calcium (8.4-10.2) mg/dL Magnesium (1.6-2.3) mg/dL Total Bilirubin (0.2-1.3) mg/dL AST (14-36) U/L ALT (0-35) U/L Alkaline Phosphatase (38-126) U/L Troponin I 0.058 H* (0.000-0.034) ng/mL NT-Pro-B Natriuret Pep (0-900) pg/mL Serum Total Protein (6.3-8.2) g/dL Albumin (3.5-5.0) g/dL Procalcitonin (0.030-0.080) ng/mL Urinalys Dipstick Clnc Urine Color (YELLOW) Urine Appearance (CLEAR) Urine pH (5-6) Ur Specific Browder (1.005-1.025) POC Urine Protein Conf (Negative) Urine Ketones (NEGATIVE) Urine Nitrite (NEGATIVE) Urine Bilirubin (NEGATIVE) Urine Urobilinogen (0-1) mg/dL Urine Leukocytes (NEGATIVE) Urine WBC (Auto) (0-5) /HPF Urine RBC (Auto) (0-2) /HPF U Hyaline Cast (Auto) (0-2) /LPF U Epithel Cells (Auto) (FEW) /HPF Urine Bacteria (Auto) (NEGATIVE) /HPF Urine RBC (0-5) Francisco/ul Unidentified Crystals (NEGATIVE) /HPF Urine Mucus (Auto) (NEGATIVE) /HPF Ur Culture Indicated? Urine Glucose (NEGATIVE) mg/dL Urine Opiates Level (NEGATIVE) Ur Methadone (NEGATIVE) Urine Barbiturates (NEGATIVE) Ur Phencyclidine (PCP) (NEGATIVE) Urine Amphetamine (NEGATIVE) U Benzodiazepine Level (NEGATIVE) Urine Cocaine (NEGATIVE) Urine Marijuana (THC) (NEGATIVE) Influenza Type A Ag (NEGATIVE) Influenza Type B Ag (NEGATIVE) RSV (PCR) (Negative) SARS-CoV-2 (PCR) (NEGATIVE) 04/15/22 04/15/22 04/15/22 Range/Units 23:15 22:35 21:55 WBC (4.0-10.5) x10^3/uL RBC (4.1-5.4) x10^6/uL Hgb (12.0-16.0) g/dL Hct (35-47) % MCV (78-100) fL MCH (26-32) pg MCHC (32-36) g/dL RDW (11.5-14.0) % Plt Count (150-450) x10^3/uL MPV (7.5-11.0) fL Gran % (36.0-66.0) % Immature Gran % (Auto) (0.00-0.4) % Nucleat RBC Rel Count (0.00-0.1) % Eos # (Auto) (0-0.5) x10^3/uL Immature Gran # (Auto) (0.00-0.03) x10^3u/L Absolute Lymphs (auto) (1.0-4.6) x10^3/uL Absolute Monos (auto) (0.0-1.3) x10^3/uL Absolute Nucleated RBC (0.00-0.01) x10^3u/L Lymphocytes % (24.0-44.0) % Monocytes % (0.0-12.0) % Eosinophils % (0.00-5.0) % Basophils % (0.0-0.4) % Absolute Granulocytes (1.4-6.9) x10^3/uL Basophils # (0-0.4) x10^3/uL Sodium (137-145) mmol/L Potassium (3.5-5.1) mmol/L Chloride (98-107) mmol/L Carbon Dioxide (22-30) mmol/L Anion Gap (5-15) MEQ/L BUN (7-17) mg/dL Creatinine (0.52-1.04) mg/dL Estimated GFR ML/MIN Glucose (74-106) mg/dL POC Glucometer 110 H 78 (74 to 106) mg/dL Lactic Acid (0.4-2.0) Calcium (8.4-10.2) mg/dL Magnesium (1.6-2.3) mg/dL Total Bilirubin (0.2-1.3) mg/dL AST (14-36) U/L ALT (0-35) U/L Alkaline Phosphatase (38-126) U/L Troponin I (0.000-0.034) ng/mL NT-Pro-B Natriuret Pep (0-900) pg/mL Serum Total Protein (6.3-8.2) g/dL Albumin (3.5-5.0) g/dL Procalcitonin (0.030-0.080) ng/mL Urinalys Dipstick Clnc Urine Color (YELLOW) Urine Appearance (CLEAR) Urine pH (5-6) Ur Specific Browder (1.005-1.025) POC Urine Protein Conf (Negative) Urine Ketones (NEGATIVE) Urine Nitrite (NEGATIVE) Urine Bilirubin (NEGATIVE) Urine Urobilinogen (0-1) mg/dL Urine Leukocytes (NEGATIVE) Urine WBC (Auto) (0-5) /HPF Urine RBC (Auto) (0-2) /HPF U Hyaline Cast (Auto) (0-2) /LPF U Epithel Cells (Auto) (FEW) /HPF Urine Bacteria (Auto) (NEGATIVE) /HPF Urine RBC (0-5) Francisco/ul Unidentified Crystals (NEGATIVE) /HPF Urine Mucus (Auto) (NEGATIVE) /HPF Ur Culture Indicated? Urine Glucose (NEGATIVE) mg/dL Urine Opiates Level (NEGATIVE) Ur Methadone (NEGATIVE) Urine Barbiturates (NEGATIVE) Ur Phencyclidine (PCP) (NEGATIVE) Urine Amphetamine (NEGATIVE) U Benzodiazepine Level (NEGATIVE) Urine Cocaine (NEGATIVE) Urine Marijuana (THC) (NEGATIVE) Influenza Type A Ag NEGATIVE (NEGATIVE) Influenza Type B Ag NEGATIVE (NEGATIVE) RSV (PCR) NEGATIVE (Negative) SARS-CoV-2 (PCR) POSITIVE A (NEGATIVE) 04/15/22 04/15/22 04/15/22 Range/Units 21:32 20:46 20:46 WBC (4.0-10.5) x10^3/uL RBC (4.1-5.4) x10^6/uL Hgb (12.0-16.0) g/dL Hct (35-47) % MCV (78-100) fL MCH (26-32) pg MCHC (32-36) g/dL RDW (11.5-14.0) % Plt Count (150-450) x10^3/uL MPV (7.5-11.0) fL Gran % (36.0-66.0) % Immature Gran % (Auto) (0.00-0.4) % Nucleat RBC Rel Count (0.00-0.1) % Eos # (Auto) (0-0.5) x10^3/uL Immature Gran # (Auto) (0.00-0.03) x10^3u/L Absolute Lymphs (auto) (1.0-4.6) x10^3/uL Absolute Monos (auto) (0.0-1.3) x10^3/uL Absolute Nucleated RBC (0.00-0.01) x10^3u/L Lymphocytes % (24.0-44.0) % Monocytes % (0.0-12.0) % Eosinophils % (0.00-5.0) % Basophils % (0.0-0.4) % Absolute Granulocytes (1.4-6.9) x10^3/uL Basophils # (0-0.4) x10^3/uL Sodium (137-145) mmol/L Potassium (3.5-5.1) mmol/L Chloride (98-107) mmol/L Carbon Dioxide (22-30) mmol/L Anion Gap (5-15) MEQ/L BUN (7-17) mg/dL Creatinine (0.52-1.04) mg/dL Estimated GFR ML/MIN Glucose (74-106) mg/dL POC Glucometer 88 (74 to 106) mg/dL Lactic Acid (0.4-2.0) Calcium (8.4-10.2) mg/dL Magnesium (1.6-2.3) mg/dL Total Bilirubin (0.2-1.3) mg/dL AST (14-36) U/L ALT (0-35) U/L Alkaline Phosphatase (38-126) U/L Troponin I (0.000-0.034) ng/mL NT-Pro-B Natriuret Pep (0-900) pg/mL Serum Total Protein (6.3-8.2) g/dL Albumin (3.5-5.0) g/dL Procalcitonin (0.030-0.080) ng/mL Urinalys Dipstick Clnc MAIN LAB Urine Color YELLOW (YELLOW) Urine Appearance SLIGHTLY CLOUDY (CLEAR) Urine pH 5.5 (5-6) Ur Specific Browder >=1.030 (1.005-1.025) POC Urine Protein Conf >=300 (Negative) Urine Ketones NEGATIVE (NEGATIVE) Urine Nitrite NEGATIVE (NEGATIVE) Urine Bilirubin SMALL (NEGATIVE) Urine Urobilinogen 0.2 (0-1) mg/dL Urine Leukocytes NEGATIVE (NEGATIVE) Urine WBC (Auto) 3-5 (0-5) /HPF Urine RBC (Auto) 0-2 (0-2) /HPF U Hyaline Cast (Auto) 3-5 (0-2) /LPF U Epithel Cells (Auto) RARE (FEW) /HPF Urine Bacteria (Auto) NONE SEEN (NEGATIVE) /HPF Urine RBC TRACE-INTACT (0-5) Francisco/ul Unidentified Crystals 2-5 (NEGATIVE) /HPF Urine Mucus (Auto) SLIGHT (NEGATIVE) /HPF Ur Culture Indicated? NO Urine Glucose 250 (NEGATIVE) mg/dL Urine Opiates Level NEGATIVE (NEGATIVE) Ur Methadone NEGATIVE (NEGATIVE) Urine Barbiturates NEGATIVE (NEGATIVE) Ur Phencyclidine (PCP) NEGATIVE (NEGATIVE) Urine Amphetamine NEGATIVE (NEGATIVE) U Benzodiazepine Level NEGATIVE (NEGATIVE) Urine Cocaine NEGATIVE (NEGATIVE) Urine Marijuana (THC) NEGATIVE (NEGATIVE) Influenza Type A Ag (NEGATIVE) Influenza Type B Ag (NEGATIVE) RSV (PCR) (Negative) SARS-CoV-2 (PCR) (NEGATIVE) 04/15/22 04/15/22 04/15/22 Range/Units 20:26 20:23 20:23 WBC (4.0-10.5) x10^3/uL RBC (4.1-5.4) x10^6/uL Hgb (12.0-16.0) g/dL Hct (35-47) % MCV (78-100) fL MCH (26-32) pg MCHC (32-36) g/dL RDW (11.5-14.0) % Plt Count (150-450) x10^3/uL MPV (7.5-11.0) fL Gran % (36.0-66.0) % Immature Gran % (Auto) (0.00-0.4) % Nucleat RBC Rel Count (0.00-0.1) % Eos # (Auto) (0-0.5) x10^3/uL Immature Gran # (Auto) (0.00-0.03) x10^3u/L Absolute Lymphs (auto) (1.0-4.6) x10^3/uL Absolute Monos (auto) (0.0-1.3) x10^3/uL Absolute Nucleated RBC (0.00-0.01) x10^3u/L Lymphocytes % (24.0-44.0) % Monocytes % (0.0-12.0) % Eosinophils % (0.00-5.0) % Basophils % (0.0-0.4) % Absolute Granulocytes (1.4-6.9) x10^3/uL Basophils # (0-0.4) x10^3/uL Sodium 133 L (137-145) mmol/L Potassium 2.8 L* (3.5-5.1) mmol/L Chloride 105 (98-107) mmol/L Carbon Dioxide 22 (22-30) mmol/L Anion Gap 8.9 (5-15) MEQ/L BUN 20 H (7-17) mg/dL Creatinine 1.29 H (0.52-1.04) mg/dL Estimated GFR 43.9 ML/MIN Glucose 219 H (74-106) mg/dL POC Glucometer 154 H (74 to 106) mg/dL Lactic Acid (0.4-2.0) Calcium 8.2 L (8.4-10.2) mg/dL Magnesium 1.9 (1.6-2.3) mg/dL Total Bilirubin 0.20 (0.2-1.3) mg/dL AST 25 (14-36) U/L ALT 16 (0-35) U/L Alkaline Phosphatase 66 (38-126) U/L Troponin I 0.061 H* (0.000-0.034) ng/mL NT-Pro-B Natriuret Pep 6310 H (0-900) pg/mL Serum Total Protein 4.8 L (6.3-8.2) g/dL Albumin 2.3 L (3.5-5.0) g/dL Procalcitonin 0.079 (0.030-0.080) ng/mL Urinalys Dipstick Clnc Urine Color (YELLOW) Urine Appearance (CLEAR) Urine pH (5-6) Ur Specific Browder (1.005-1.025) POC Urine Protein Conf (Negative) Urine Ketones (NEGATIVE) Urine Nitrite (NEGATIVE) Urine Bilirubin (NEGATIVE) Urine Urobilinogen (0-1) mg/dL Urine Leukocytes (NEGATIVE) Urine WBC (Auto) (0-5) /HPF Urine RBC (Auto) (0-2) /HPF U Hyaline Cast (Auto) (0-2) /LPF U Epithel Cells (Auto) (FEW) /HPF Urine Bacteria (Auto) (NEGATIVE) /HPF Urine RBC (0-5) Francisco/ul Unidentified Crystals (NEGATIVE) /HPF Urine Mucus (Auto) (NEGATIVE) /HPF Ur Culture Indicated? Urine Glucose (NEGATIVE) mg/dL Urine Opiates Level (NEGATIVE) Ur Methadone (NEGATIVE) Urine Barbiturates (NEGATIVE) Ur Phencyclidine (PCP) (NEGATIVE) Urine Amphetamine (NEGATIVE) U Benzodiazepine Level (NEGATIVE) Urine Cocaine (NEGATIVE) Urine Marijuana (THC) (NEGATIVE) Influenza Type A Ag (NEGATIVE) Influenza Type B Ag (NEGATIVE) RSV (PCR) (Negative) SARS-CoV-2 (PCR) (NEGATIVE) 04/15/22 04/15/22 Range/Units 20:23 20:06 WBC 9.2 (4.0-10.5) x10^3/uL RBC 4.01 L (4.1-5.4) x10^6/uL Hgb 11.4 L (12.0-16.0) g/dL Hct 35.9 (35-47) % MCV 89.5 (78-100) fL MCH 28.4 (26-32) pg MCHC 31.8 L (32-36) g/dL RDW 13.3 (11.5-14.0) % Plt Count 396 (150-450) x10^3/uL MPV 9.1 (7.5-11.0) fL Gran % 71.4 H (36.0-66.0) % Immature Gran % (Auto) 0.4 (0.00-0.4) % Nucleat RBC Rel Count 0.0 (0.00-0.1) % Eos # (Auto) 0.22 (0-0.5) x10^3/uL Immature Gran # (Auto) 0.04 H (0.00-0.03) x10^3u/L Absolute Lymphs (auto) 1.43 (1.0-4.6) x10^3/uL Absolute Monos (auto) 0.92 (0.0-1.3) x10^3/uL Absolute Nucleated RBC 0.00 (0.00-0.01) x10^3u/L Lymphocytes % 15.5 L (24.0-44.0) % Monocytes % 10.0 (0.0-12.0) % Eosinophils % 2.4 (0.00-5.0) % Basophils % 0.3 (0.0-0.4) % Absolute Granulocytes 6.59 (1.4-6.9) x10^3/uL Basophils # 0.03 (0-0.4) x10^3/uL Sodium (137-145) mmol/L Potassium (3.5-5.1) mmol/L Chloride (98-107) mmol/L Carbon Dioxide (22-30) mmol/L Anion Gap (5-15) MEQ/L BUN (7-17) mg/dL Creatinine (0.52-1.04) mg/dL Estimated GFR ML/MIN Glucose (74-106) mg/dL POC Glucometer (74 to 106) mg/dL Lactic Acid 2.0 (0.4-2.0) Calcium (8.4-10.2) mg/dL Magnesium (1.6-2.3) mg/dL Total Bilirubin (0.2-1.3) mg/dL AST (14-36) U/L ALT (0-35) U/L Alkaline Phosphatase (38-126) U/L Troponin I (0.000-0.034) ng/mL NT-Pro-B Natriuret Pep (0-900) pg/mL Serum Total Protein (6.3-8.2) g/dL Albumin (3.5-5.0) g/dL Procalcitonin (0.030-0.080) ng/mL Urinalys Dipstick Clnc Urine Color (YELLOW) Urine Appearance (CLEAR) Urine pH (5-6) Ur Specific Browder (1.005-1.025) POC Urine Protein Conf (Negative) Urine Ketones (NEGATIVE) Urine Nitrite (NEGATIVE) Urine Bilirubin (NEGATIVE) Urine Urobilinogen (0-1) mg/dL Urine Leukocytes (NEGATIVE) Urine WBC (Auto) (0-5) /HPF Urine RBC (Auto) (0-2) /HPF U Hyaline Cast (Auto) (0-2) /LPF U Epithel Cells (Auto) (FEW) /HPF Urine Bacteria (Auto) (NEGATIVE) /HPF Urine RBC (0-5) Francisco/ul Unidentified Crystals (NEGATIVE) /HPF Urine Mucus (Auto) (NEGATIVE) /HPF Ur Culture Indicated? Urine Glucose (NEGATIVE) mg/dL Urine Opiates Level (NEGATIVE) Ur Methadone (NEGATIVE) Urine Barbiturates (NEGATIVE) Ur Phencyclidine (PCP) (NEGATIVE) Urine Amphetamine (NEGATIVE) U Benzodiazepine Level (NEGATIVE) Urine Cocaine (NEGATIVE) Urine Marijuana (THC) (NEGATIVE) Influenza Type A Ag (NEGATIVE) Influenza Type B Ag (NEGATIVE) RSV (PCR) (Negative) SARS-CoV-2 (PCR) (NEGATIVE) - Progress Progress: improved, re-examined Discussed with : Other Counseled pt/family regarding: lab results, diagnosis, rad results - Progress Progress Note: 04/15/22 22:04 67 years old is evaluated for altered mental status with hypoglycemia. She is given D50 and started on D10 on presentation in the ER and blood sugar started to improve. She is placed on a Shahida hugger as she was hypothermic with temperature around 87. Improved to 91.4 on reevaluation. Broad work-up was done with normal white count, lactate of 2.0, chemistry profile showing hypokalemia 2.8 and started on IV replacement per protocol. Chest x-ray showed congestion with questionable infiltrative process bilaterally reviewed by me, official report is pending. She is given broad-spectrum antibiotics Zosyn and Levaquin as it seems like patient is septic. Also has troponin of 0.06 with T wave and with inversion in anterolateral leads and some ST depression in lateral leads which I believe is secondary to sepsis driven and less likely cardiac. Because of altered mental status I have obtained CT head which showed bilateral vasogenic edema with indeterminate mass on the right sella area needing further evaluation with MRI. On reevaluation patient is more responsive but still sleepy. She has stable vitals. Her blood sugar on recheck was in 200s, D10 was decreased and it started to drop again to 80s and D10 is increased. I believe patient has a combination of issue with superimposed infection from recent COVID-19/sepsis and also need MRI. No MRI services are available at this facility over the weekend. Discussed with Dr. Brown at [facility] and has no neuro services and same with [facility]. [facility], work-up and patient is accepted for transfer. 04/15/22 22:12 (FOREIGN MICHAUD) 04/16/22 08:48 Pt stable at 7:00AM, alert w good airway/Oriented x2/VSS/Transferred to [facility] per [facility] (MARGO GUERRERO) - Departure Critical Care Time: Yes Critical Care Time(excluding separately billable procedures): Critical 75-104 mins - Departure Clinical Impression: Altered mental status, Sepsis, Hypothermia, Vasogenic brain edema, Hypoglycemia, Hypokalemia, Elevated troponin Condition: Fair Referrals: DEE IRVIN [Primary Care Provider] - Follow up/PCP as directed
[2022-04-15] MEDS ORDERED: DEXTROSE 10% 250 ML 250 ML IV SCH (23:45)
[2022-04-15 23:54] LABS: INFLUENZA A NEGATIVE (NEGATIVE); INFLUENZA B NEGATIVE (NEGATIVE); RESPIRATORY SYNCTIAL VIRUS NEGATIVE (Negative)
[2022-04-16 00:01] LABS: SARS-CoV-2 Xpert Express POSITIVE (NEGATIVE)
[2022-04-16] MEDS ORDERED: TYLENOL 325 MG PO STA (03:53)
[2022-04-16] MEDS ORDERED: TYLENOL 325 MG ONE (03:54)
[2022-04-16] MEDS ORDERED: Sodium Chloride 0.9% 1000 ML 0 ML ONE (07:04)
[2022-04-16 08:12] VITALS: BP 187/80; PULSE 84; O2SAT 97
== END 2022-04-16 08:05 | disposition short-term general hospital (02) ==
LOC: ED 19:55
DX: A41.89 Other specified sepsis (principal); U07.1 COVID-19; R41.82 Altered mental status, unspecified; R68.0 Hypothermia, not associated with low environmental temperature; G93.6 Cerebral edema; E11.65 Type 2 diabetes mellitus with hyperglycemia; E87.6 Hypokalemia; R77.8 Other specified abnormalities of plasma proteins; I10 Essential (primary) hypertension; E78.5 Hyperlipidemia, unspecified; Z72.0 Tobacco use; Z79.899 Other long term (current) drug therapy; Z79.4 Long term (current) use of insulin
CPT/HCPCS: 0241U; 36000; 36415; 51702; 70450; 71045; 80053; 80307; 81015; 82947; 83605; 83735; 83880; 84132; 84145; 84484; 85025; 93005; 96360; 96361; 96365; 96366; 96367; 96374; 99285; 99291; 99292; J1956; J2405; J3480; A9270-GY